=== PATIENT | female | born 1985 | race Caucasian/White ===

== ENCOUNTER → 2020-10-23 12:43 | Outpatient (CLI) | payer OTHER, SELFPAY ==
--- NOTE | ~2020-10-23 | US_ITS ---
EXAMINATION: US OB transvaginal DATE: 10/23/2020 13:23 INDICATION: First trimester dating TECHNIQUE: Real-time pelvic transabdominal and transvaginal ultrasound was performed. COMPARISON: None. FINDINGS: The uterus measures 11.3 x 6.3 x 7.8 cm. There is an intrauterine gestational sac. A yolk sac is identified. heart motion is identified measuring 172 beats per minute (bpm) by M-mode Do ppler. The crown rump length measures 1.4 cm , which correlates with an estimated gestational a ge of 7 weeks and 5 day(s) (+/-) 5 day(s). The right ovary measures 2.4 x 2.0 x 2.2 cm. The left ovary measures 3.8 x 3.0 x 3.9 cm and contains a 3 cm cyst. There is normal vascular flow in the ovaries. There is no free fluid in the pelvis. IMPRESSION: 1. Live intrauterine with an estimated gestational age of 7 weeks and 5 day(s) (+/-) 5 day( s) and an estimated delivery date of 06/06/2021. Reviewed, dictated and finalized at location A. ING PAN TENDER IMPRESSION: 1. Live intrauterine with an estimated gestational age of 7 weeks and 5 day(s) (+/-) 5 day(s) and an estimated delivery date of 06/06/2021.
== END ==
PROVIDERS: PCP Family Medicine; Visit Provider Obstetrics & Gynecology Gynecology
DX: Z34.91 Encounter for supervision of normal pregnancy, unspecified, first trimester (principal); Z3A.01 Less than 8 weeks gestation of pregnancy
CPT/HCPCS: 76817

== ENCOUNTER → 2021-01-06 10:46 | Outpatient (CLI) | payer OTHER, SELFPAY ==
--- NOTE | ~2021-01-06 | US_ITS ---
EXAMINATION: US OB >= 14 weeks Fetus DATE: 01/06/2021 11:38 INDICATION: survey TECHNIQUE: Multiple obstetric sonographic images performed. FINDINGS: Ultrasound dated 10/23/2020 There is a single living fetus in vertex presentation. The placenta is posterior without placenta pr evia measuring 5.9 cm to the cervix. Amniotic fluid volume is subjectively normal. cardiac activity and movement is noted with a heart rate of 157 beats per minute. The following anatomy was identified as normal: 3 vessel cord cord insertion urinary bladder stomach spine diaphragm ventricles cisterna magna cerebellum survey limited for evaluation of four-chamber heart, kidneys and upper lip. The following biometric data were obtained: BPD: 42mm corresponds to gestational age 18 weeks 5 days. Head circumference: 151 mm corresponds to gestational age 18 weeks 1 days. Abdominal circumference: 133 mm corresponds to gestational age 18 weeks 6 days. Femur length: 28 mm corresponds to gestational age 18 weeks 4 days. Head circumference to abdominal circumference ratio: 1.13 (normal range for expected gestational age is 1.09-1.27). Estimated weight: 250 grams +/- 38 grams using Hadlock method. IMPRESSION: 1: Single living intrauterine with an estimated gestational age of 18weeks 3days by initial ultrasound measurements, with an EDC of 06/06/2021 in vertex presentation. 2. survey limited for evaluation of four-chamber heart, kidneys and upper lip. Right recommend attention to these structures on follow-up examination. Otherwise, unremarkable survey. Reviewed, dictated and finalized at location A. IMPRESSION: 1: Single living intrauterine with an estimated gestational age of 18 weeks 3days by initial ultrasound measurements, with an EDC of 06/06/2021 in ve rtex presentation. 2. survey limited for evaluation of four-chamber heart, kidneys and uppe r lip. Right recommend attention to these structures on follow-up examination. Otherwise, unremarkable survey.
== END ==
PROVIDERS: Visit Provider Nurse Practitioner
DX: Z36.9 Encounter for antenatal screening, unspecified (principal); Z3A.18 18 weeks gestation of pregnancy
CPT/HCPCS: 76805

== ENCOUNTER → 2021-02-03 10:53 | Outpatient (CLI) | payer OTHER, SELFPAY ==
--- NOTE | ~2021-02-03 | US_ITS ---
EXAMINATION: US OB follow up DATE: 02/03/2021 11:17 INDICATION: Follow-up with incomplete second trimester anatomic survey TECHNIQUE: Real-time ultrasound of the pelvis was performed. The interpreting radiologist was not pre sent for the study. COMPARISON: None. FINDINGS: There is a single living fetus in vertex presentation. The placenta is posterior and 8.5 cm from the internal cervical os. cardiac activity and movement are noted. heart rate is 147 beats per minute (bpm). The amniotic fluid index is subjectively normal. The upper lip, kidne ys, and heart appear normal. The following biometric data were obtained: Biparietal diameter (BPD): 5.7 cm; head circumference (HC): 20.4 cm; abdominal circumference (AC): 17 .6 cm; femur length (FL): 4.2 cm. These measurements are concordant. Estimated weight is 561 g +/- 84 g, which correlates with the 76th percentile when 06/06/2021 i s used as estimated date of delivery. As single measurements, these parameters are each equal to the following estimated gestational ages w ith ranges of +/- 2 standard deviations: BPD: 23 weeks 4 days ( 21 weeks 5 days - 25 weeks 2 days). HC: 22 weeks 4 days ( 21 weeks 1 days - 24 weeks 0 days). AC: 22 weeks 4 days ( 20 weeks 3 days - 24 weeks 4 days). FL: 23 weeks 6 days ( 22 weeks 0 days - 25 weeks 4 days). estimated gestational age based solely on measurements from this exam is 23 weeks 1 days +/- 1 weeks 4 days. IMPRESSION: 1. Single living fetus in vertex presentation. 2. Normal-appearing kidneys, upper lip, and heart. 3. Estimated weight is 561 g +/- 84 g, which correlates with the 76th percentile when 1 is used as estimated date of delivery. Reviewed, dictated and finalized at location A. IMPRESSION: 1. Single living fetus in vertex presentation. 2. Normal-appearing kidneys, upper lip, and heart. 3. Estimated weight is 561 g +/- 84 g, which correlates with the 76th per centile when 06/06/2021 is used as estimated date of delivery.
== END ==
PROVIDERS: PCP Family Medicine; Visit Provider Obstetrics & Gynecology Gynecology
DX: Z36.2 Encounter for other antenatal screening follow-up (principal)
CPT/HCPCS: 76816

== ENCOUNTER → 2021-03-06 15:29 | Outpatient (CLI) | payer OTHER, SELFPAY ==
--- NOTE | ~2021-03-06 | US_ITS ---
EXAMINATION: US OB follow up EXAM DATE: 03/06/2021 16:03 INDICATION: Growth, Gestational diabetes . 2nd trimester. TECHNIQUE: Pelvic obstetrical transabdominal sonogram was performed by a technologist. There are mu ltiple grayscale and Doppler images available for interpretation. Comparison is made to prior examina tion from 02/03/2021. FINDINGS: There is a single fetus identified in vertex presentation with a heart rate of 152 beats pe r minute. The placenta is located in the fundal position. There is no sonographic evidence of retrop lacental hemorrhage identified. The amniotic fluid index is 16.1 centimeters, which is normal. BIOMETRIC DATA: Biparietal diameter (BPD): 6.9 cm ----------------> 27 weeks 6 days. Head circumference (HC): 25.2 cm ----------------> 27 weeks 2 days. Abdominal circumference (AC): 22.6 cm ----------> 27 weeks 0 days. Femur length (FL): 5.0 cm --------------------------> 26 weeks 6 days. These measurements are concordant. HC/AC ratio is 1.12 (The 5th -- 95th percentile range is 1.04-1.22. Estimated weight is 1019 g +/- 153 g. This is the 46th percentile when the currently reported clinical gestation age 26 weeks 6 days, clinical estimated date of delivery (VIKASH-OPE) 06/06 is used. estimated gestational age based on measurements from this exam is 27 weeks 2 days, with an marianela mated date of delivery (VIKASH-AUA) 06/03. IMPRESSION: 1. Single fetus in vertex presentation with heart rate 152 beats per minute. 2. Estimated weight of 1019 grams, 46th percentile using the currently reported clinical gesta tion age of 26 weeks 6 days, VIKASH(OPE) 06/06. 3. Normal TODD 16 cm. Reviewed, dictated and finalized at location A. IMPRESSION: 1. Single fetus in vertex presentation with heart rate 152 beats per minute. 2. Estimated weight of 1019 grams, 46th percentile using the currently r eported clinical gestation age of 26 weeks 6 days, VIKASH(OPE) 06/06. 3. Normal TODD 16 cm.
== END ==
PROVIDERS: Visit Provider Obstetrics & Gynecology Gynecology
DX: O24.419 Gestational diabetes mellitus in pregnancy, unspecified control (principal); Z3A.27 27 weeks gestation of pregnancy
CPT/HCPCS: 76816

== ENCOUNTER 2021-04-24 10:28 | Outpatient (CLI) | payer OTHER, SELFPAY ==
--- NOTE | ~2021-04-24 | US_ITS ---
EXAMINATION: US OB follow up DATE: 04/24/2021 11:05 INDICATION: Size greater than dates during third trimester , gestational diabetes TECHNIQUE: Real-time ultrasound of the pelvis was performed. The interpreting radiologist was not pre sent for the study. COMPARISON: 03/06/2021 FINDINGS: There is a single living fetus in vertex presentation. The placenta is fundal. cardia c activity and movement are noted. heart rate is 137 beats per minute (bpm). The amniotic fluid index is 9.8 cm which is normal. The following biometric data were obtained: Biparietal diameter (BPD): 8.6 cm; head circumference (HC): 31.6 cm; abdominal circumference (AC): 30 .6 cm; femur length (FL): 6.4 cm. These measurements are concordant. Estimated weight is 2411 g +/- 361 g, which correlates with the 59th percentile when 06/06/2021 is used as estimated date of delivery. As single measurements, these parameters are each equal to the following estimated gestational ages w ith ranges of +/- 2 standard deviations: BPD: 35 weeks 0 days ( 31 weeks 6 days - 38 weeks 0 days). HC: 35 weeks 4 days ( 32 weeks 4 days - 38 weeks 4 days). AC: 34 weeks 4 days ( 31 weeks 4 days - 37 weeks 4 days). FL: 33 weeks 2 days ( 30 weeks 2 days - 36 weeks 2 days). estimated gestational age based solely on measurements from this exam is 34 weeks 4 days +/- 2 weeks 3 days. IMPRESSION: 1. Single living fetus in vertex presentation. 2. Estimated weight is 2411 g +/- 361 g, which correlates with the 59th percentile when 021 is used as estimated date of delivery. 3. Normal amniotic fluid index. Reviewed, dictated and finalized at location B. IMPRESSION: 1. Single living fetus in vertex presentation. 2. Estimated weight is 2411 g +/- 361 g, which correlates with the 59th p ercentile when 06/06/2021 is used as estimated date of delivery. 3. Normal amniotic fluid index.
== END 2021-04-24 10:29 ==
LOC: MICIMG 10:29
PROVIDERS: PCP Family Medicine; Visit Provider Obstetrics & Gynecology Gynecology
DX: O36.63X0 Maternal care for excessive fetal growth, third trimester, not applicable or unspecified (principal); Z3A.00 Weeks of gestation of pregnancy not specified
CPT/HCPCS: 76816

== ENCOUNTER 2021-05-29 12:25 | Outpatient (RCR) | payer OTHER, SELFPAY ==
[2021-04-14 11:06] VITALS: BP 122/72; PULSE 68
[2021-04-16 18:07] VITALS: BP 104/58; PULSE 77
[2021-04-30 17:15] VITALS: BP 126/63; PULSE 79
[2021-05-07 10:03] VITALS: BP 130/78; PULSE 64
[2021-05-14 17:33] VITALS: BP 129/76; PULSE 69
[2021-05-21 09:46] VITALS: BP 122/72; PULSE 82
--- NOTE | ~2021-05-29 | US_ITS ---
EXAMINATION: 1. US OB limited w BPP 2. US umbilical doppler DATE: 05/21/2021 09:14 INDICATION: Decelerations. Gestational diabetes. Third trimester. TECHNIQUE: Real-time pelvic ultrasound was performed. COMPARISON: Ultrasound 04/24/2021 FINDINGS: There is a single living fetus in vertex presentation. The placenta is fundal. heart rate is 1 33 beats per minute (bpm). The amniotic fluid index is 12.5 cm, which is normal. Biophysical profile performed by the technologist: breathing (30 sec sustained breathing in 30 minutes): 2 out of 2 movement (3 gross body movements in 30 minutes): 2 out of 2 tone (one episode of abazlrn-xoxqgvyhm-xlygtai limb movement): 2 out of 2 Amniotic fluid pocket (2 cm): 2 out of 2 Total score: 8 out of 8 Umbilical artery pulsed Doppler demonstrates a peak systolic to end-diastolic velocity ratio (S/D rat io) of 2.5 (5th percentile = 1.9, 95th percentile = 3.2). IMPRESSION: 1. Single living fetus in vertex presentation. 2. Biophysical profile 8 out of 8. 3. Normal umbilical artery Doppler. Reviewed, dictated and finalized at location A. IMPRESSION: 1. Single living fetus in vertex presentation. 2. Biophysical profile 8 out of 8. 3. Normal umbilical artery Doppler.
[2021-05-29 13:19] VITALS: BP 126/65; PULSE 72
== END 2021-06-29 09:23 | disposition home or self-care (01) ==
LOC: ANHOBOP 12:25
PROVIDERS: PCP Family Medicine; Visit Provider Obstetrics & Gynecology Gynecology
DX: O24.419 Gestational diabetes mellitus in pregnancy, unspecified control (principal); Z3A.32 32 weeks gestation of pregnancy; Z3A.34 34 weeks gestation of pregnancy; Z3A.35 35 weeks gestation of pregnancy; Z3A.36 36 weeks gestation of pregnancy; Z3A.37 37 weeks gestation of pregnancy; Z3A.38 38 weeks gestation of pregnancy
CPT/HCPCS: 59025; 76815; 76819; 76820

== ENCOUNTER 2021-05-31 18:09 | Inpatient (IN) | payer OTHER, SELFPAY ==
[2021-05-31] VITALS (11 sets, daily range): BP systolic 122–140; BP diastolic 72–86; PULSE 64–73; RESP 18–20; TEMP 36.5–36.6; BMI 52.0
--- NOTE | 2021-05-31 18:09 | LDADM ---
This patient, Veronica Ruano, was admitted to Labor/Delivery/Recovery 109 on 05/31/21 at 18:09. Plans for labor, pain management and were discussed with patient. Patient/family oriented to hospital policies and general routines including ID bracelet, bed and alarms, visiting hours, pain management, procedures, bathroom and other care routines, personal items, smoking policy, room service/diet and guest tray routines, infant security routines, and visiting hours. Patient/Family are encouraged to report perceived risks to care and to ask questions if they do not understand what they are told or what they should do. See OBIX for further documentation.
[2021-05-31 19:08] LABS: Basophils Percent Auto 0.2 % (0.2-1.2); Eosinophils Absolute Auto 0.1 K/mm3 (0-0.3); Eosinophils Percent Auto 1.2 % (0-4.4); Hemoglobin 11.3 g/dL (12.0-15.0); Immature Granulocyte Absolute 0.06 K/mm3 (0.00-0.031); Immature Granulocyte Percent A 0.6 % (0-0.5); Lymphocytes Absolute Auto 1.82 K/mm3 (0.9-3.2); Lymphocytes Percent Auto 18.6 % (18.3-44.2); Mean Corpuscular HGB Conc 31.4 g/dl (32-36); Mean Corpuscular Hemoglobin 28.5 pg (26-34); Mean Corpuscular Volume 90.9 fl (80-100); Mean Platelet Volume 12.2 fl (7.4-10.4); Monocytes Absolute Auto 0.5 K/mm3 (0.1-0.6); Monocytes Percent Auto 4.9 % (2.6-8.5); Neutrophils Absolute Auto 7.3 K/mm3 (1.3-6.7); Neutrophils Percent Auto 74.5 % (45.5-73.1); Platelet Count Result 198 k/mm3 (150-375); Red Blood Count 3.96 M/mm3 (4.2-5.4); Red Cell Distribution Width 15.7 % (11.5-14.5); White Blood Count 9.8 K/mm3 (4.5-10.0)
[2021-05-31 19:16] LABS: Glucose Point of Care 101 mg/dl (65-105)
[2021-05-31] MEDS: DINOPROSTONE 10 MG VAG INSERT VAGINAL (19:37)
[2021-05-31 21:49] LABS: Glucose Point of Care 75 mg/dl (65-105)
--- NOTE | 2021-05-31 22:03 | PC.NURSE ---
Dr. Martin aware of pharmacists communication clarification on pt 88 units of NPH at bedtime. Blood sugar rechecked: 75. Order received from Dr. Lyles for pt to get 50 units of NPH with a snack and recheck blood sugar at 0300. If pt blood sugar is greater than 140 give an additional 10NPH.
[2021-05-31] MEDS: INSULIN HUMAN NPH (*BKC) 100 UNITS/ML 50 UNITS SUB-Q (22:34)
[2021-06-01] VITALS (214 sets, daily range): BP systolic 112–163; BP diastolic 58–92; PULSE 57–121; RESP 18; TEMP 36.5–37; O2SAT 96–100
[2021-06-01 02:53] LABS: Glucose Point of Care 82 mg/dl (65-105)
[2021-06-01 07:39] LABS: Glucose Point of Care 77 mg/dl (65-105)
--- NOTE | 2021-06-01 08:37 | WPDOBADMIT ---
Obstetrics - Admit Note Admission Note: record reviewed. No pertinent additions to the history and/or any subsequent changes in the physical findings that are not consistent with the expected course of the were found. Additions to the history and/or subsequent changes in the physical findings follow. None. Here for MIL for GDMA2. Cervadil last pm. Now 1-/-2 anterior AROM with clear fluid. Continue MIL
[2021-06-01] MEDS: LACTATED RINGERS 1,000 ML 125 ML IV CONT ×2 (08:59→18:54)
[2021-06-01] MEDS: OXYTOCIN 30 UNITS/NS 500 ML 30 UNITS/500 ML BAG IV CONT (09:00)
[2021-06-01 10:28] LABS: Rapid Plasma Reagin Non-Reactive (NonReactive)
--- NOTE | 2021-06-01 12:14 | WPDANESEPP ---
Anes - Eval Pre Procedure Procedure: Labor epidural Date/Time: 06/01/21 12:14 Surgeon: Michael Preop Diagnosis: Abd pain with contractions Pre Op Diagnosis: Patient Data Age: 35 Gender: F Height: 1.75 m Weight: 160 kg Last Vital Signs Temp 98.2 F 06/01/21 09:30 Pulse 66 06/01/21 11:47 Resp 18 06/01/21 05:32 BP 123/67 06/01/21 11:47 Allergies Allergy/AdvReac Type Severity Reaction Status Date / Time No Known Allergies Allergy Verified 05/12/21 13:30 Home Medications Medication Instructions Recorded Confirmed Type PNV cmb#95-ferrous fumarate-FA 1 tablet PO DAILY 04/14/21 05/31/21 History [] insulin NPH isoph U-100 human 88 unit SUBCUT HS 05/12/21 05/21/21 History [Humulin N NPH U-100 Insulin] Laboratory Tests 05/31/21 05/31/21 05/31/21 18:57 18:57 18:58 WBC 9.8 K/mm3 K/mm3 (4.5-10.0) RBC 3.96 M/mm3 L M/mm3 (4.2-5.4) Hgb 11.3 g/dL L g/dL (12.0-15.0) Hct 36.0 % L % (37.0-47.0) MCV 90.9 fl fl (80-100) MCH 28.5 pg pg (26-34) MCHC 31.4 g/dl L g/dl (32-36) RDW 15.7 % H % (11.5-14.5) Plt Count 198 k/mm3 k/mm3 (150-375) MPV 12.2 fl H fl (7.4-10.4) Immature Gran % (Auto) 0.6 % H % (0-0.5) Neut % (Auto) 74.5 % H % (45.5-73.1) Lymph % (Auto) 18.6 % % (18.3-44.2) [place] % (Auto) 4.9 % % (2.6-8.5) Eos % (Auto) 1.2 % % (0-4.4) Baso % (Auto) 0.2 % % (0.2-1.2) Lymph # (Auto) 1.82 K/mm3 K/mm3 (0.9-3.2) [place] # (Auto) 0.5 K/mm3 K/mm3 (0.1-0.6) Eos # (Auto) 0.1 K/mm3 K/mm3 (0-0.3) Baso # (Auto) 0.0 K/mm3 K/mm3 (0.0-0.1) Abs Immat Gran (auto) 0.06 K/mm3 H K/mm3 (0.00-0.031) Absolute Neuts (auto) 7.3 K/mm3 H K/mm3 (1.3-6.7) Absolute Nucleated RBC 0.0 K/mm3 K/mm3 (0.0-0.012) Nucleated RBC % 0.0 % % (0.0-0.2) POC Capillary Glucose RPR Non-reactive (NonReactive) Blood Type A Positive Antibody Screen Negative 05/31/21 05/31/21 06/01/21 19:04 21:46 02:50 WBC RBC Hgb Hct MCV MCH MCHC RDW Plt Count MPV Immature Gran % (Auto) Neut % (Auto) Lymph % (Auto) [place] % (Auto) Eos % (Auto) Baso % (Auto) Lymph # (Auto) [place] # (Auto) Eos # (Auto) Baso # (Auto) Abs Immat Gran (auto) Absolute Neuts (auto) Absolute Nucleated RBC Nucleated RBC % POC Capillary Glucose 101 mg/dl mg/dl 75 mg/dl mg/dl 82 mg/dl mg/dl (65-105) (65-105) (65-105) RPR Blood Type Antibody Screen 06/01/21 07:36 WBC RBC Hgb Hct MCV MCH MCHC RDW Plt Count MPV Immature Gran % (Auto) Neut % (Auto) Lymph % (Auto) [place] % (Auto) Eos % (Auto) Baso % (Auto) Lymph # (Auto) [place] # (Auto) Eos # (Auto) Baso # (Auto) Abs Immat Gran (auto) Absolute Neuts (auto) Absolute Nucleated RBC Nucleated RBC % POC Capillary Glucose 77 mg/dl mg/dl (65-105) RPR Blood Type Antibody Screen Patient hx anesthesia problems: none Family hx anesthesia problems: none Results Review: All pre-operative results and documents have been reviewed as part of the pre-operative evaluation. FORMERLY [facility] Past Medical History Medical History Anxiety and depression Gestational diabetes Morbid obesity SOFY (obstructive sleep apnea) PCOS (polycystic ovarian syndrome
[2021-06-01 12:25] LABS: Glucose Point of Care 85 mg/dl (65-105)
[2021-06-01 14:46] LABS: Glucose Point of Care 72 mg/dl (65-105)
[2021-06-01 18:55] LABS: Glucose Point of Care 108 mg/dl (65-105)
[2021-06-01] MEDS: SODIUM CHLORIDE 0.9% IV 300 ML 600 ML I-UTERINE (21:56)
[2021-06-01 23:22] LABS: Glucose Point of Care 65 mg/dl (65-105)
[2021-06-02] VITALS (85 sets, daily range): BP systolic 82–192; BP diastolic 26–128; PULSE 66–209; RESP 16–18; TEMP 36.1–37.7; O2SAT 82–100
[2021-06-02] MEDS: LACTATED RINGERS 1,000 ML 125 ML IV CONT (00:07)
[2021-06-02 01:06] LABS: Glucose Point of Care 104 mg/dl (65-105)
[2021-06-02] MEDS: AMPICILLIN 2 GM/NS 100 ML 2 GM/100 ML BAG IVPB (02:42)
--- NOTE | 2021-06-02 03:21 | P.PCNOB_ITS ---
OB - Delivery Note Procedure Delivery date: 06/02/21 events: Gestational Diabetes and Labor Induction Intrapartal events: None Induction method: AROM, per pitocin protocol and per cervidil protocol Delivery monitor: internal FHT and internal uterine Route of delivery: Laceration Description: Perineal - 2nd Degree Delivery repair: vicryl (3-0) Specimen: Yes (placenta) Quantitative Blood Loss (ml): 100 Anesthesia type: Epidural Disposition: floor [place] Baby Date of : 06/02/21 Weeks of gestation at delivery: 39 Infant gender: Male Weight (pounds): 7 presentation: vertex position: Right Occiput Anterior Placenta delivery description: Spontaneous cord vessel description: 3 Vessels score one minute: 7 score five minutes: 9
--- NOTE | 2021-06-02 03:22 | PM.OBDSVD ---
DS: Admitting Diagnosis Discharge Date 06/04/21 Admitting Diagnosis GDMA2; 39 wks for PATRICA DS: Discharge Diagnosis Discharge Diagnosis (1) GDM, class A2: Code(s): O24.419 - Gestational diabetes mellitus in , unspecified control Status: Acute (2) (normal spontaneous vaginal delivery): Code(s): O80 - Encounter for full-term uncomplicated delivery Status: Acute OB - DS: Summary OB Procedures : NST and Ultrasound OB Procedures Intrapartum: Spontaneous Vag Delivery OB Procedures: : None Peripartum Data Delivery Method: Natural Vaginal Laceration Description: Perineal - 2nd Degree complications: none Status at Discharge Functional status at discharge: independent ambulation Overall status at discharge: patient is progressing back to baseline Time Spent with Patient Time attestation: Total time spent providing and/or coordinating discharge services: DS: Data Data Completed and Pending Labs on day of discharge: Labs from last 24 hours 06/02/21 06/01/21 06/01/21 01:03 23:16 18:46 POC Capillary Glucose 104 65 108 H RPR 06/01/21 06/01/21 06/01/21 14:42 10:03 07:36 POC Capillary Glucose 72 85 77 RPR 05/31/21 18:58 POC Capillary Glucose RPR Non-reactive Discharge Plan Discharge Attending physician on discharge: Cira Rodriguez Discharging Clinician: Cira Rodriguez Anticipated Discharge Date/Time: 06/04/21 03:23 Patient Disposition: Home, Self-Care Activity: may shower and pelvic rest Diet: regular Discharge Instructions: Education: Mom and Baby Guide Given to: Mother Follow-Up: Call your delivering provider's office for an appointment to be seen in: 6 Weeks Mom and baby should come to the [facility] for the follow-up appointment. Appointment Date/Time: May at 11:00 am What to expect at your follow-up visit: Blood Pressure Check Physical Assessment Call [phone] if you are unable to keep your appointment time. BREAST CARE: * Wear a snug supportive bra. * For engorgement discomfort: Breast Feeding: * Apply warm moist washcloths * Express milk as needed to relieve engorgement * Wear loose clothing * For sore nipples: * Identify correct latch-on * Apply warm moist washcloths before and after nursing * Air dry nipples after nursing * May apply Lansinoh cream to nipples EPISIOTOMY/PERINEAL CARE: * Until bleeding stops, use your anastasia bottle after urinating * Change your pad frequently throughout the day * You may take sitz baths several times a day (fill your bathtub with warm water and soak for 20 minutes.) Do NOT bathe in the water * No tub baths until seen by your physician - You may shower ACTIVITY: * Rest as much as possible. * Do not exercise or lift anything heavier than your baby (such as laundry or other children.) * Avoid stairs or driving as much as possible. * Do not put anything into the vagina. No douching, tampons, or sexual activity until seen by physician. NOTIFY PHYSICIAN IF YOU HAVE ANY QUESTIONS OR IF ANY OF THE FOLLOWING SYMPTOMS OCCUR: * If your vaginal area becomes red, swollen, or more painful than what you have experienced in the hospital. * If your vaginal bleeding becomes foul smelling. * If your vaginal bleeding becomes more heavy than a period or if your bleeding changes from pink to bright red. However, you may pass an occasional walnut-sized clot once or twice for the first week . * If you experience a sharp, shooting pain in your calves. * If you discover a hard, reddened area on your breast or if you experience flu-like symptoms. DIET: * Eat regular, well-balanced meals. * Drink plenty of fluids daily. If , drink to thirst. Patient Instructions: Antibiotic Form, Caring for Your Baby (DC)
[2021-06-02] MEDS: OXYTOCIN 30 UNITS/NS 500 ML 30 UNITS/500 ML BAG 125 UNITS IV CONT (03:37)
[2021-06-02] MEDS: IBUPROFEN 600 MG TABLET PO ×3 (04:05→22:07)
--- NOTE | 2021-06-02 06:36 | PC.NURSE ---
0555 on 06/02/2021 Patient transferred to post room 290 in wheelchair. Support person present. Oriented to unit, room, information board, rooming in, admission packet and security measures. Patient verbalizes understanding.
[2021-06-02] MEDS: MULTIVIT/MIN/PREN/FOL AC/IRON TABLET 1 TAB PO (07:18)
--- NOTE | 2021-06-02 08:45 | PC.NURSE ---
Mother called out for assist with feeding. Mother reports infant is sleepy and has not made any attempts to latch, has not fed since . Infant is able to freely thrust tongue past gum ridge and flange both lips. Skin is intact on both nipples, no redness and bruising noted. Reviewed feeding cues, frequencies, duration of feedings, feeding elimination flow sheet, and signs of adequate intake. Demonstrated stimulation techniques to wake infant for feeding. Assisted with to breast. Reviewed positioning/alignment in cross cradle, holding breast in ?U? hold and guided asymmetrical latch on. Reviewed rational for each. Infant was unable to latch correctly or draw nipple in deeply. Attempt for 15 minutes without a successful feeding. Discussed the difference of effective vs ineffective feeding. Reviewed is latching with good burst of suckling, he is not feeding consistently with adequate milk transfer at this time and continues to need to be supplement after . Feeding options discussed, Feeding Plan is for mother to put to breast each feeding for up to 15 minutes, then pace feed supplement 20 mls and pump for 10-15 minutes. Parents are comfortable with supplementation and pumping. Mother will initiate pumping next feeding. If begins to nurse effectively with long draws and frequent swallowing noted, infant may decrease supplementation and discontinue pumping. Suggested mother have LC drill press operator numerical control observe feeding before discontinuing supplementation. Discussed increasing supplementation as infant requires to satisfactions. Reviewed paced feeding and suggested to stop when infant is satisfied, as long as is having required output. With increased supplementation may not want to feed for 4 hours. Mother will continue to pump on feeding schedule and will increase session to 20 minutes if pumping every 4 hours. Instructed mother to call out for RN assistance if she is unable to latch for feeding or she has discomfort with nursing. Instructed feeding should be initiated three hours from start of last feeding or if feeding cues are noted before. Mother voiced understanding of information shared.
--- NOTE | 2021-06-02 12:30 | PC.NURSE ---
Consult with pt., reviewed infant blood glucose and time limit on attempting. Assisted with to breast. Reviewed positioning/alignment in cross cradle, holding breast in ?U? hold and guided asymmetrical latch on. Reviewed rational for each. was unable to latch correctly or draw nipple in deeply. Attempt for 10 minutes without a successful feeding due to sleepiness. Mother will supplement 20 mls formula at this time. Mother will call out for assist with pumping once feeding is complete.
--- NOTE | 2021-06-02 13:30 | PC.NURSE ---
Breast pump provided due to ineffective feeding. Instructions given on breast pump care and usage, pumping schedule, nipple care, and collection and storage of breast milk. Encouraged [id number], breast massage and manual expression to stimulate supply. Assessed patient for correct flange size, placement and draw. Patient verbalizes and demonstrates understanding of instructions.
[2021-06-03 05:14] LABS: Hematocrit 31.7 % (37.0-47.0)
[2021-06-03] MEDS: IBUPROFEN 600 MG TABLET PO (06:58)
[2021-06-03] MEDS: MULTIVIT/MIN/PREN/FOL AC/IRON TABLET 1 TAB PO (06:58)
[2021-06-03] MEDS: DOCUSATE SODIUM 100 MG CAPSULE PO (06:58)
--- NOTE | 2021-06-03 07:46 | PM.OBPNVD ---
OB - PN: Subj Subjective Date/time seen: 06/03/21 07:46 doing well no complaints OB - PN: Obj Data Labs CBC & Chem 7: 06/03/21 04:08 Labs: Laboratory Results - last 24 hr 06/03/21 04:08 Hgb 10.0 L Hct 31.7 L OB - PN A/P Assessment and Plan (1) (normal spontaneous vaginal delivery): Code(s): O80 - Encounter for full-term uncomplicated delivery Status: Acute Assessment and Plan: continue with pp care. Time Spent With Patient Time: Total time spent is greater than 50% in coordination of care (as documented) at patient's floor/unit and/or counseling patient: Exam Narrative: ff below umbilicus
[2021-06-03 09:13] VITALS: BP 134/83; PULSE 75; PULSE 85; RESP 18; RESP 20; TEMP 36.3; O2SAT 98; O2SAT 99
--- NOTE | 2021-06-03 10:45 | PC.NURSE ---
Mother is able to independently latch with appropriate positioning/alignment. Infant has had a few bursts of suckling. She denies any nipple discomfort, is feeding as required and waking to feed if needed. Infant has no effective feedings, all feedings are followed with supplementation in the past 24 hours, and is currently meeting outcomes for weight, output, jaundice and feeding frequencies. is more awake and eager to feed today. Mother did not put to breast during the night. Mother continues to pump without difficulties or discomfort after all feedings due to ineffective feeding. Mother states she feels confident to continue current feeding plan at home. Assisted mother with a double electric pump for home use. Discussed increasing supplementation as infant requires to satisfactions. Reviewed paced feeding and suggested to stop when is satisfied, as long as infant is having required output. With increased supplementation infant may not want to feed for 4 hours. Mother will continue to pump on infant feeding schedule and will increase session to 20 minutes if pumping every 4 hours. Reviewed once mother?s milk is established and is effectively feeding, infant may have increased intake with nursing. If is effective feeding with long draws and frequent swallowing noted, may be ready to decrease/discontinue supplementation. Advised not to discontinue supplement until ICP, Follow-Up RN or LC has a pre/post weighted evaluation of feeding. Discussed nipple shield weaning techniques Reviewed transition to breast milk, signs of adequate intake, and engorgement/relief. Instructed to call ICP if intake/output less than required. Reviewed regular medications mother is taking. Information provided per [facility]. Reviewed community resources on the [facility] website and in the Mom/Baby guide. Information on outpatient services provided. Mother has no further questions at this time.
--- NOTE | 2021-06-03 13:26 | WPDANLDPN2 ---
Anes-Prog Note L&D Date/Time: 06/03/21 13:26 Comfortable throughout: labor and delivery Neuraxial method: epidural Epidural/Spinal procedure site: clean & non-tender Neuro status: Neuro function grossly intact. Cardiovascular status: normal Respiratory status: normal Airway patency: baseline Mental status: baseline Post-Op hydration status: normal Vital Signs: Last Vital Signs Temp 36.3 C L 06/03/21 09:13 Pulse 85 06/03/21 09:13 Resp 20 06/03/21 09:13 BP 134/83 06/03/21 09:13 Pulse Ox 99 06/03/21 09:13 Pain score (VAS): 0 Post-procedural complaints: none Patient feedback: Patient satisfied with anesthetic care.
[2021-06-04 11:25] VITALS: BP 125/71; PULSE 81; RESP 20; TEMP 36.9; O2SAT 100
== END 2021-06-03 12:12 | disposition home or self-care (01) | DRG 807 ==
LOC: ANHLDR 06-02 03:24 → ANHOB2 06-02 12:38 → ANHLDR 06-04 13:41
PROVIDERS: Admitting Provider Obstetrics & Gynecology Gynecology; PCP Family Medicine; Visit Provider Obstetrics & Gynecology
DX: O24.429 Gestational diabetes mellitus in childbirth, unspecified control (principal); Z37.0 Single live birth; Z3A.39 39 weeks gestation of pregnancy; O36.8330 Maternal care for abnormalities of the fetal heart rate or rhythm, third trimester, not applicable or unspecified; O70.1 Second degree perineal laceration during delivery; O99.214 Obesity complicating childbirth; E66.01 Morbid (severe) obesity due to excess calories; O99.284 Endocrine, nutritional and metabolic diseases complicating childbirth; E28.2 Polycystic ovarian syndrome; G47.33 Obstructive sleep apnea (adult) (pediatric); O99.344 Other mental disorders complicating childbirth; F41.8 Other specified anxiety disorders
CPT/HCPCS: 36415; 59025; 82948; 85014; 85018; 85025; 86592; 86850; 86900; 86901; 88307; A9270; J0290; J1815; J2590; J2795; J7030; J7120